=== PATIENT | male | born 1960 | race American Indian/Alaskan Native ===

== ENCOUNTER 2020-11-20 13:11 | Emergency (ER) | payer MEDICARE, MEDICAID ==
[2020-11-20] MEDS ORDERED: IBUPROFEN 600 MG TAB PO ONE (15:32)
--- NOTE | 2020-11-20 15:35 | Event Note ---
ED Screening Note Date of service: 11/20/20 Time: 15:33 ED Screening Note: 59-year-old -Japanese male with a past medical history of bipolar insomnia and anxiety presents to the emergency room for right elbow and left knee pain and swelling after a fall yesterday. This initial assessment/diagnostic orders/clinical plan/treatment(s) is/are subject to change based on patients health status, clinical progression and re- assessment by fellow clinical providers in the ED. Further treatment and workup at subsequent clinical providers discretion. Patient/guardian urged not to elope from the ED as their condition may be serious if not clinically assessed and managed. Initial orders include:
--- NOTE | 2020-11-20 16:14 | XRay Report ---
RIGHT ELBOW 3 VIEWS INDICATION / CLINICAL INFORMATION: fall deny swelling and pain. COMPARISON: None available. FINDINGS: A large joint effusion is present. Metallic density is present superimposed over the lateral aspect o f the distal humerus. No other significant skeletal abnormality Signer Name: Timur Ramos MD FACSamantha Signed: 11/20/2020 4:09 PM Workstation Name: [id number]
--- NOTE | 2020-11-20 16:15 | XRay Report ---
LEFT KNEE 2 VIEWS INDICATION / CLINICAL INFORMATION: fall knee pain ecchymosis. COMPARISON: None available. FINDINGS: A small radiopaque density is seen in the soft tissues medially the distal third of the tibia. No oth er significant abnormality Signer Name: Timur Ramos MD FACSamantha Signed: 11/20/2020 4:10 PM Workstation Name: [id number]
[2020-11-20] MEDS ORDERED: ACETAMINOPHEN 500 MG TAB PO ONE (18:04)
--- NOTE | 2020-11-20 18:04 | Emergency Department Report ---
ED Fall HPI - General Chief Complaint: Fall Stated Complaint: RT ELBOW/LT KNEE PAIN Source: patient Mode of arrival: Ambulatory - History of Present Illness Initial Comments: Patient is a 59-year-old male with no past medical history presents to the ED with complaint of acute onset persistent severe right elbow and left knee pain after he tripped and fell down landing on the right elbow and rolling on his left knee 24 hours ago when trying to catch a bus. Patient states that the pain was initially mild but subsequently got worse especially in the last 12 hours. Patient states that the pain is worse with any active range of motion or ambulation. Patient denies head or neck injuries, nausea, vomiting, syncope, seizures, loss of consciousness, back pain, hip pain, abdominal pain, change in vision or numbness and tingling or weakness of lower and upper extremities bilaterally. MD Complaint: fall, other (Right elbow and left knee pain) -: Sudden, hour(s) (24) Fall From: standing, other (Tripped and fell concrete ground) When Fall Occurred: 24 hours CLAIM TRAINEE Fall Witnessed: yes, by bystander Place Fall Occurred: street Loss of Consciousness: none Prolonged Down Time?: no Symptoms Prior to Fall: none Location: other (Right elbow and left knee) Location - Extremities: Left: Knee (Pain and mild swelling), Right: Elbow (Pain and mild swelling) Severity: severe Severity scale (0 -10): 8 Quality: sharp, aching Context: tripped/slipped (Tripped and fell down on the concrete ground 24 hours ago) Associated Symptoms: denies. denies: headache, neck pain, numbness, weakness, chest paint, shortness of breath, hematuria - Related Data Previous Rx's Medication Instructions Recorded Last Taken Type Ibuprofen [Motrin] 800 mg PO Q8HR PRN #30 tablet 11/20/20 Unknown Rx methOCARBAMOL [Robaxin TAB] 750 mg PO Q8H PRN #21 tablet 11/20/20 Unknown Rx Allergies Allergy/AdvReac Type Severity Reaction Status Date / Time No Known Allergies Allergy Unverified 11/20/20 14:00 ED Review of Systems ROS: Stated complaint: RT ELBOW/LT KNEE PAIN Other details as noted in HPI Constitutional: denies: chills, fever Eyes: denies: eye pain, eye discharge, vision change ENT: denies: ear pain, throat pain Respiratory: denies: cough, shortness of breath, wheezing Cardiovascular: denies: chest pain, palpitations Endocrine: no symptoms reported Gastrointestinal: denies: abdominal pain, nausea, diarrhea Genitourinary: denies: urgency, dysuria Musculoskeletal: joint swelling (Right elbow swelling), arthralgia (Right elbow and left knee pain), myalgia. denies: back pain Skin: denies: rash, lesions Neurological: denies: headache, weakness, paresthesias Psychiatric: denies: anxiety, depression Hematological/Lymphatic: denies: easy bleeding, easy bruising ED Past Medical Hx - Medications Home Medications: Home Medications Medication Instructions Recorded Confirmed Last Taken Type Ibuprofen [Motrin] 800 mg PO Q8HR PRN #30 tablet 11/20/20 Unknown Rx methOCARBAMOL [Robaxin TAB] 750 mg PO Q8H PRN #21 tablet 11/20/20 Unknown Rx ED Physical Exam - General Limitations: No Limitations General appearance: alert, in no apparent distress - Head Head exam: Present: atraumatic, normocephalic, normal inspection - Eye Eye exam: Present: normal appearance, PERRL, EOMI Pupils: Present: normal accommodation - ENT ENT exam: Present: normal exam, normal orophraynx, mucous membranes moist, TM's normal bilaterally, normal external ear exam - Neck Neck exam: Present: normal inspection, full ROM - Respiratory Respiratory exam: Present: normal lung sounds bilaterally. Absent: respiratory distress, wheezes, rhonchi, stridor, chest wall tenderness, accessory muscle use, decreased breath sounds, other - Cardiovascular Cardiovascular Exam: Present: normal rhythm, bradycardia, normal heart sounds. Absent: systolic murmur, diastolic murmur, rubs, gallop - GI/Abdominal GI/Abdominal exam: Present: soft, normal bowel sounds. Absent: tenderness, guarding, rebound, hyperactive bowel sounds, hypoactive bowel sounds, mass, pulsatile mass - Extremities Exam Extremities exam: Present: normal inspection, tenderness (Palpable right elbow and left knee tenderness with mild swelling and limited range of motion of right elbow due to pain), normal capillary refill, joint swelling (Mildly swollen right elbow and left knee joint). Absent: full ROM (Limited range of motion of right elbow due to pain), calf tenderness - Back Exam Back exam: Present: normal inspection, full ROM. Absent: tenderness, CVA tenderness (R), CVA tenderness (L), muscle spasm, paraspinal tenderness, vertebral tenderness - Neurological Exam Neurological exam: Present: alert, oriented X3, CN II-XII intact, normal gait, reflexes normal - Psychiatric Psychiatric exam: Present: normal affect, normal mood - Skin Skin exam: Present: warm, dry, intact, normal color. Absent: rash ED Course Vital Signs 11/20/20 11/20/20 14:00 16:03 Temperature 98.2 F Pulse Rate 53 L Respiratory 16 18 Rate Blood Pressure 154/85 [Right] O2 Sat by Pulse 96 Oximetry ED Medical Decision Making - Radiology Data Radiology results: report reviewed, image reviewed [facility] [address] [place] [address] XRay Report Signed Patient: JASON POP MR#: [id number] : 1960 Acct:[id number] Age/Sex: 59 / M ADM Date: 11/20/20 Loc: ED Attending Dr: Ordering Physician: MEHUL RAMOS Date of Service: 11/20/20 Procedure(s): XR knee 1-2V LT Accession Number(s): [id number] cc: MEHUL RAMOS Fluoro Time In Minutes: LEFT KNEE 2 VIEWS INDICATION / CLINICAL INFORMATION: fall knee pain ecchymosis. COMPARISON: None available. FINDINGS: A small radiopaque density is seen in the soft tissues medially the distal third of the tibia. No other significant abnormality Signer Name: Timur Ramos MD FACR Signed: 11/20/2020 4:10 PM Workstation Name: [id number] Transcribed By: MS Dictated By: Timur Ramos MD Electronically Authenticated By: Timur Ramos MD Signed Date/Time: 11/20/20 161 DD/ 08 TD/TT: [facility] [address] [place] [address] XRay Report Signed Patient: JASON POP MR#: [id number] : 1960 Acct:[id number] Age/Sex: 59 / M ADM Date: 11/20/20 Loc: ED Attending Dr: Ordering Physician: MEHUL RAMOS Date of Service: 11/20/20 Procedure(s): XR elbow 3+V RT Accession Number(s): [id number] cc: MEHUL RAMOS Fluoro Time In Minutes: RIGHT ELBOW 3 VIEWS INDICATION / CLINICAL INFORMATION: fall deny swelling and pain. COMPARISON: None available. FINDINGS: A large joint effusion is present. Metallic density is present superimposed over the lateral aspect of the distal humerus. No other significant skeletal abnormality Signer Name: Timur Ramos MD FACR Signed: 11/20/2020 4:09 PM Workstation Name: [id number] Transcribed By: MS Dictated By: Timur Ramos MD Electronically Authenticated By: Timur Ramos MD Signed Date/Time: 11/20/201608 DD/ 08 TD/TT: Print Cancel - Medical Decision Making This is a 59-year-old male with no past medical history presents to the ED with complaint of acute onset persistent severe right elbow and left knee pain after he tripped and fell down landing on the right elbow and rolling on his left knee 24 hours ago when trying to catch a bus. Patient states that the pain was initially mild but subsequently got worse especially in the last 12 hours. Patient states that the pain is worse with any active range of motion or ambulation. In the ED, patient is alert and oriented x3 and is not in distress but appears to be in significant pain. Patient was treated for pain in the ED. Left knee x-ray shows no acute fractures or subluxations. Right elbow x-ray also showed no acute fractures or subluxations. The right elbow was immobilized in a sling and the left knee splinted with Maikel wrap. On reevaluation, patient's pain is well controlled medications. Patient was discharged home on pain medications and advised to follow-up with his primary care physician in 5 to 7 days for reevaluation or return to the ED immediately if symptoms get worse. - Differential Diagnosis Elbow sprain; Elbow contusion; Knee contusion; knee sprain Critical care attestation.: If time is entered above; I have spent that time in minutes in the direct care of this critically ill patient, excluding procedure time. ED Disposition Clinical Impression: Contusion of right forearm, initial encounter Sprain of left knee/leg Qualifiers: Encounter type: initial encounter Qualified Code(s): S83.92XA - Sprain of unspecified site of left knee, initial encounter Sprain of right elbow Qualifiers: Encounter type: initial encounter Qualified Code(s): S53.401A - Unspecified sprain of right elbow, initial encounter Disposition: TO HOME OR SELFCARE Is pt being admited?: No Does the pt Need Aspirin: No Condition: Stable Instructions: Knee Sprain, Adult, [id number]-[id number], Contusion, [id number], Elbow Sprain Additional Instructions: The x-rays of right elbow and left knee showed no acute fractures or subluxations. Your injuries are likely due to muscle strain and muscle spasm and soft tissue injuries. Therefore take medications with food, drink plenty of fluids and follow-up with your primary care physician in 5 to 7 days for reevaluation. Return to the ED immediately if symptoms get worse. Prescriptions: Ibuprofen [Motrin] 800 mg PO Q8HR PRN #30 tablet PRN Reason: Pain , Severe (7-10) methOCARBAMOL [Robaxin TAB] 750 mg PO Q8H PRN #21 tablet PRN Reason: Muscle Spasm Referrals: [facility] [Outside] - 3-5 Days Forms: Work/School Release Form(ED) Time of Disposition: 18:02 Print Language: GABONESE
[2020-11-20 18:45] VITALS: BP 150/92
== END 2020-11-20 18:46 | disposition home or self-care (01) ==
LOC: ED 13:11
DX: S83.92XA Sprain of unspecified site of left knee, initial encounter (principal); S53.401A Unspecified sprain of right elbow, initial encounter; S50.11XA Contusion of right forearm, initial encounter; Z79.899 Other long term (current) drug therapy; W01.0XXA Fall on same level from slipping, tripping and stumbling without subsequent striking against object, initial encounter; Y93.89 Activity, other specified; Y92.89 Other specified places as the place of occurrence of the external cause; Y99.8 Other external cause status

== ENCOUNTER 2021-09-30 08:20 | Emergency (ER) | payer MEDICARE ==
[2021-09-30] MEDS ORDERED: LIDOCAINE (1%) 10 MG/1 ML VIAL 20 ML MDV INFILTRATI ONE (08:22)
[2021-09-30] MEDS ORDERED: TETANUS,DIPH,PERTUSS(ACELL) VACCINE 0.5 ML SYRINGE IM ONE (08:22)
--- NOTE | 2021-09-30 08:26 | Emergency Department Report ---
ED Fall HPI - General Chief Complaint: Wound/Laceration Stated Complaint: LACERATION Time Seen by Provider: 09/30/21 08:21 - History of Present Illness Initial Comments: Patient presents by ambulance secondary to a fall. He tripped and fell while walking. He struck his face on the ground. Patient sustained a laceration to the lower lip. This happened just prior to arrival. He had no loss of consciousness. He denies neck pain and back pain. Has no chest pain or abdominal pain. He did not injure his arms or shoulders. Patient has no loose dentition. He did not injure his tongue. He only came in because of the lace ration to the lower lip. He is unsure when his tetanus shot was last updated. - Related Data Previous Rx's Medication Instructions Recorded Last Taken Type Ibuprofen [Motrin] 800 mg PO Q8HR PRN #30 tablet 11/20/20 Unknown Rx methOCARBAMOL [Robaxin TAB] 750 mg PO Q8H PRN #21 tablet 11/20/20 Unknown Rx Allergies Allergy/AdvReac Type Severity Reaction Status Date / Time No Known Allergies Allergy Verified 09/30/21 08:34 ED Review of Systems ROS: Stated complaint: LACERATION Other details as noted in HPI Comment: All other systems reviewed and negative Constitutional: denies: fever Eyes: denies: vision change ENT: denies: throat pain Respiratory: denies: cough Cardiovascular: denies: chest pain Endocrine: denies: unexplained weight loss Gastrointestinal: denies: abdominal pain Genitourinary: denies: dysuria Musculoskeletal: denies: back pain Skin: denies: rash Neurological: denies: headache Hematological/Lymphatic: denies: easy bruising ED Past Medical Hx - Past Medical History Additional medical history: Alcohol abuse - Social History Smoking Status: Never Smoker Substance Use Type: None - Medications Home Medications: Home Medications Medication Instructions Recorded Confirmed Last Taken Type Ibuprofen [Motrin] 800 mg PO Q8HR PRN #30 tablet 11/20/20 Unknown Rx methOCARBAMOL [Robaxin TAB] 750 mg PO Q8H PRN #21 tablet 11/20/20 Unknown Rx ED Physical Exam - General Limitations: No Limitations, Other (Pulse ox noted and normal by EMS) General appearance: alert, in no apparent distress - Head Head exam: Present: normocephalic, other (There are multiple lacerations to the lower lip.) - Eye Eye exam: Present: normal appearance, EOMI. Absent: scleral icterus - ENT ENT exam: Present: normal external ear exam, other (Oropharynx is clear.) - Neck Neck exam: Present: normal inspection. Absent: tenderness, meningismus - Respiratory Respiratory exam: Present: normal lung sounds bilaterally. Absent: respiratory distress - Cardiovascular Cardiovascular Exam: Present: regular rate, normal rhythm - GI/Abdominal GI/Abdominal exam: Present: soft. Absent: tenderness - Extremities Exam Extremities exam: Present: normal capillary refill - Back Exam Back exam: Present: full ROM - Neurological Exam Neurological exam: Present: alert, oriented X3, CN II-XII intact, normal gait, reflexes normal. Absent: motor sensory deficit - Psychiatric Psychiatric exam: Present: normal affect, normal mood - Skin Skin exam: Present: warm, dry ED Course Vital Signs 09/30/21 09/30/21 09/30/21 08:34 08:39 09:50 Temperature 98 F Pulse Rate 89 83 Respiratory 16 Rate Blood Pressure 148/97 153/88 [Right] O2 Sat by Pulse 98 98 95 Oximetry - Reevaluation(s) Reevaluation #1: 09/30/21 08:25 EMS was met upon arrival. Tetanus booster and lidocaine were ordered. Reevaluation #2: 09/30/21 08:53 Laceration was repaired. Patient is complaining of a headache. He does not appear to be intoxicated. CT was ordered. Reevaluation #3: 09/30/21 09:26 CT was reviewed. Results are pending. It appears to be normal. I do believe patient will be discharged. - Laceration /Wound Repair Lower Face Wound Location: mouth (Lower lip) Wound Length (cm): 2 Wound's Depth, Shape: irregular, flap Wound Explored: clean Irrigated w/ Saline (ccs): 250 Betadine Prep?: Yes Anesthesia: 1% Lidocaine Volume Anesthetic (ccs): 3 Wound Repaired With: sutures Suture Size/Type: 6:0 (Vicryl) Number of Sutures: 5 Sterile Dressing Applied?: Yes Progress: Including 2 through the [facility] ED Medical Decision Making - Radiology Data Radiology results: report reviewed - Medical Decision Making Patient presents with a lip laceration after fall. This is been repaired. Has no loose dentition. There is no midface instability. I do not believe there is evidence of a facial fracture. I do not believe CT is necessary. Patient had no loss of consciousness. He has a normal neurologic exam. Is not anticoagulated. Again, CT would not be indicated. Patient was given a tetanus booster. Wound repair was completed. Patient was subsequently discharged. As the patient had complained of a headache with fall and intoxication, CT was obtained. I did not appreciate any evidence of acute bleed. There is no subdural or epidural hematomas. Critical Care Time: No Critical care attestation.: If time is entered above; I have spent that time in minutes in the direct care of this critically ill patient, excluding procedure time. ED Disposition Clinical Impression: Abnormal CT of brain Fall Qualifiers: Encounter type: initial encounter Qualified Code(s): W19.XXXA - Unspecified fall, initial encounter Lip laceration Qualifiers: Encounter type: initial encounter Qualified Code(s): S01.511A - Laceration without foreign body of lip, initial encounter Alcohol intoxication Qualifiers: Complication of substance-induced condition: with unspecified complication Qualified Code(s): F10.929 - Alcohol use, unspecified with intoxication, unspecified Disposition: 01 HOME / SELF CARE / HOMELESS Is pt being admited?: No Condition: Stable Instructions: Laceration Care, Adult, Sutured Wound Care Additional Instructions: Keep the lip moist. Apply ice for pain and swelling. Drink plenty water. Return for problems. Follow-up with your regular doctor or the referral physician in 2 days for wound check. If you cannot follow-up, return here. Referrals: LUCA HARPER MD [Primary Care Provider] - 3-5 Days TIARA WALTERS MD [Staff Physician] - 3-5 Days
[2021-09-30 09:50] VITALS: BP 153/88
--- NOTE | 2021-09-30 09:58 | Cat Scan Report ---
. CT head/brain wo con INDICATION / CLINICAL INFORMATION: 60 years Male; trauma, intoxicated. TECHNIQUE: Routine CT head without contrast. All CT scans at this location are performed using CT dos e reduction for ALARA by means of automated exposure control. COMPARISON: None. FINDINGS: BRAIN / INTRACRANIAL CONTENTS: There may be a mild component of edema or myelomalacia in the posterio r body and splenium of the corpus callosum. MRI would be helpful for further evaluation, if clinicall y warranted. Otherwise, no acute hemorrhage, mass effect, midline shift, hydrocephalus, or acute, large territori al infarct. No signs of significant atrophy or chronic infarct. No significant white matter abnormali ty seen. CRANIOCERVICAL JUNCTION: No significant abnormality. ORBITS: No significant abnormality of visualized orbits. SINUSES / MASTOIDS: Mild mucosal thickening in the ethmoids. Frontal process of the maxilla fracture seen on the left with minimal apex medial angulation. No sign ificant soft tissue swelling seen in this region-this finding may been related to a remote injury. Pl ease clinically correlate. ADDITIONAL FINDINGS: Postsurgical change is seen in the mandible on the left. Bilateral temporomandib ular joint disease noted-left greater than right. Asymmetrically, mildly prominent soft tissue and secretions seen in the right posterolateral nasophar ynx, when compared with the left. Direct visual inspection of this region may be of benefit. IMPRESSION: 1. Edema and/or myelomalacia seen in the posterior body and splenium of the corpus callosum. Follow-u p with pre and postcontrast MRI of the brain, as clinically warranted. 2. Otherwise, no focal mass, hemorrhage, hydrocephalus, or ischemia seen. Signer Name: Yossi Henley MD, III Signed: 09/30/2021 9:53 AM Workstation Name: [id number]
[2021-09-30] MEDS ORDERED: ACETAMINOPHEN 500 MG TAB PO ONE (11:44)
== END 2021-09-30 10:17 | disposition home or self-care (01) ==
LOC: ED 08:20
DX: S01.511A Laceration without foreign body of lip, initial encounter (principal); R94.02 Abnormal brain scan; F10.129 Alcohol abuse with intoxication, unspecified; W18.30XA Fall on same level, unspecified, initial encounter; Y93.01 Activity, walking, marching and hiking; Y92.89 Other specified places as the place of occurrence of the external cause; Y99.8 Other external cause status
CPT/HCPCS: 12011; 70450; 90471; 90715; 99284; J3490

== ENCOUNTER 2021-10-04 00:08 | Emergency (ER) | payer MEDICARE ==
[2021-10-04] MEDS ORDERED: AMOXICILLIN 500 MG CAP PO ONE (07:46)
[2021-10-04] MEDS ORDERED: traMADol 50 MG TAB PO ONE (07:46)
--- NOTE | 2021-10-04 07:46 | Emergency Department Report ---
Suture/Staple Removal - HPI Chief Complaint: Laceration/Recheck/Suture Stated Complaint: LIP PAIN Time Seen by Provider: 10/04/21 07:39 Wound Location: LOWER LIP ED Review of Systems ROS: Stated complaint: LIP PAIN Other details as noted in HPI Comment: All other systems reviewed and negative ED Past Medical Hx - Past Medical History Previous Medical History?: Yes Additional medical history: Alcohol abuse - Surgical History Past Surgical History?: No - Family History Family history: no significant - Social History Smoking Status: Never Smoker Substance Use Type: None - Medications Home Medications: Home Medications Medication Instructions Recorded Confirmed Last Taken Type Ibuprofen [Motrin] 800 mg PO Q8HR PRN #30 tablet 11/20/20 Unknown Rx methOCARBAMOL [Robaxin TAB] 750 mg PO Q8H PRN #21 tablet 11/20/20 Unknown Rx Amoxicillin [Trimox CAP] 500 mg PO BID #20 capsule 10/04/21 Unknown Rx Suture Removal Exam - Exam General: Vital signs noted. No distress. Alert and acting appropriately. Wound: Yes Pathologic Erythema, Yes Tenderness, No Drainage, No Pus, No Wound Dehiscence Other Systems: All other systems reviewed and are unremarkable. ED Course Vital Signs 10/04/21 06:28 Temperature 97.8 F Pulse Rate 51 L Respiratory 18 Rate Blood Pressure 148/96 O2 Sat by Pulse 95 Oximetry ED Recheck MDM - Core Measures Measure Exclusions: not indicated - Differential Diagnosis Wound Recheck - Medical Decision Making PT HAD STITCHES PLACED 3 DAYS AGO CO LIP PAIN NO DRAINAGE WOUND CRUSTED OVER NO FEVER LIP SWOLLEN AND RED NO FEVER OR CHILLS TDAP UTD WOUND CARE PROVIDED STARTED AMOX IN ER ULTRAM FOR PAIN STARTED ON AMOX TODAY- WILL RETURN FOR SUTURE REMOVAL AT PREDETERMINED DATE Vital Signs 10/04/21 06:28 Temperature 97.8 F Pulse Rate 51 L Respiratory 18 Rate Blood Pressure 148/96 O2 Sat by Pulse 95 Oximetry Critical care attestation.: If time is entered above; I have spent that time in minutes in the direct care of this critically ill patient, excluding procedure time. ED Disposition Clinical Impression: Wound infection Lip laceration Qualifiers: Encounter type: sequela Qualified Code(s): S01.511S - Laceration without foreign body of lip, sequela Disposition: 01 HOME / SELF CARE / HOMELESS Is pt being admited?: No Does the pt Need Aspirin: No Condition: Stable Instructions: Wound Infection Additional Instructions: amox. antibiotic as given to you today take until gone clean wound with soap and water twice per day return to ER in 7 days (from day of injury) for suture removal or your pcp can take them out Prescriptions: Amoxicillin [Trimox CAP] 500 mg PO BID #20 capsule Referrals: JAMIL ECHEVERRIA MD [Staff Physician] - 3-5 Days Time of Disposition: 07:53
[2021-10-04 09:02] VITALS: BP 140/90
== END 2021-10-04 09:02 | disposition home or self-care (01) ==
LOC: ED 00:08
DX: L08.89 Other specified local infections of the skin and subcutaneous tissue (principal); S01.511D Laceration without foreign body of lip, subsequent encounter; F10.20 Alcohol dependence, uncomplicated; X58.XXXD Exposure to other specified factors, subsequent encounter
CPT/HCPCS: 99282

== ENCOUNTER 2021-10-10 10:07 | Emergency (ER) | payer MEDICARE ==
[2021-10-10 11:28] VITALS: BP 149/94
--- NOTE | 2021-10-10 11:56 | Emergency Department Report ---
Suture/Staple Removal - HPI Chief Complaint: Laceration/Recheck/Suture Stated Complaint: LIP Time Seen by Provider: 10/10/21 11:37 Wound Location: 60-year-old male presents to the ER for removal of sutures placed on 09/30 ED Review of Systems ROS: Stated complaint: LIP Other details as noted in HPI Comment: All other systems reviewed and negative Constitutional: no symptoms reported Respiratory: no symptoms reported Endocrine: no symptoms reported Skin: other (Sutures in place to lower lip) ED Past Medical Hx - Past Medical History Previous Medical History?: No Additional medical history: Alcohol abuse - Surgical History Past Surgical History?: No - Social History Smoking Status: Never Smoker Substance Use Type: None - Medications Home Medications: Home Medications Medication Instructions Recorded Confirmed Last Taken Type Ibuprofen [Motrin] 800 mg PO Q8HR PRN #30 tablet 11/20/20 Unknown Rx methOCARBAMOL [Robaxin TAB] 750 mg PO Q8H PRN #21 tablet 11/20/20 Unknown Rx Amoxicillin [Trimox CAP] 500 mg PO BID #20 capsule 10/04/21 Unknown Rx Suture Removal Exam - Exam General: Vital signs noted. No distress. Alert and acting appropriately. Wound: Yes Tenderness, No Pathologic Erythema, No Drainage, No Pus, No Wound Dehiscence Other Systems: All other systems reviewed and are unremarkable. ED Course Vital Signs 10/10/21 11:24 Temperature 98.3 F Pulse Rate 55 L Respiratory 14 Rate Blood Pressure 149/94 O2 Sat by Pulse 98 Oximetry ED Recheck MDM - Differential Diagnosis Wound Recheck, Suture/Staple Removal - Medical Decision Making Sutures noted to be in place to the lower lip. No swelling or drainage noted area noted to be tender to touch. Upon examination of his previous chart, patient was noted to have Vicryl sutures placed in lip. Patient was advised to keep sutures in place until they dissolve because Vicryl is a dissolvable suture. He stated that he is taking antibiotics as previously ordered. He denies fever or any purulent drainage. Patient verbalized understanding of plan. He was advised to follow-up with his primary care provider if any other problems or here for any complications. Critical Care Time: No Critical care attestation.: If time is entered above; I have spent that time in minutes in the direct care of this critically ill patient, excluding procedure time. ED Disposition Clinical Impression: Encounter for wound re-check Disposition: HOME / SELF CARE / HOMELESS Is pt being admited?: No Does the pt Need Aspirin: No Instructions: Sutured Wound Care, [id number] Additional Instructions: Continue antibiotics as previously ordered. Leave stitches in place until they dissolve. Continue to evaluate stitches daily and if you develop drainage, swelling, redness, or fever please return to ER for wound check. Follow-up with primary care doctor as needed. Time of Disposition: 11:58
== END 2021-10-10 19:10 | disposition home or self-care (01) ==
LOC: ED 10:07
DX: S01.511D Laceration without foreign body of lip, subsequent encounter (principal); Z48.00 Encounter for change or removal of nonsurgical wound dressing; X58.XXXD Exposure to other specified factors, subsequent encounter

== ENCOUNTER 2021-12-04 06:06 | Emergency (ER) | payer MEDICARE ==
[2021-12-04] MEDS ORDERED: HALOPERIDOL LACTATE 5 MG/1 ML INJ IM ONE (06:13)
[2021-12-04] MEDS ORDERED: diphenhydrAMINE 50 MG/ML VIAL IM ONE (06:13)
[2021-12-04] MEDS ORDERED: LORazepam 2 MG/ML VIAL IM ONE (06:13)
[2021-12-04] MEDS ORDERED: LORazepam 2 MG/ML VIAL ONE (06:14)
[2021-12-04] MEDS ORDERED: HALOPERIDOL LACTATE 5 MG/1 ML INJ ONE (06:14)
[2021-12-04] MEDS ORDERED: diphenhydrAMINE 50 MG/ML VIAL ONE (06:14)
[2021-12-04 07:07] LABS: Basophils % (Auto) 0.2 % (0.0-1.8); Eosinophils % (Auto) 0.1 % (0.0-4.3); Hematocrit 41.5 % (35.5-45.6); Hemoglobin 13.2 gm/dl (11.8-15.2); Lymphocytes # (Auto) 0.8 K/mm3 (1.2-5.4); Lymphocytes % (Auto) 10.5 % (13.4-35.0); Mean Corpuscular HGB Conc 32 % (32-34); Mean Corpuscular Volume 94 fl (84-94); Monocytes # (Auto) 0.5 K/mm3 (0.0-0.8); Monocytes % (Auto) 6.1 % (0.0-7.3); Platelet Count 199 K/mm3 (140-440); Red Blood Count 4.43 M/mm3 (3.65-5.03); Red Cell Distribution Width 13.5 % (13.2-15.2)
[2021-12-04 07:28] LABS: BUN/Creatinine Ratio 19; Blood Urea Nitrogen 15 mg/dL (9-20); Calcium 9.1 mg/dL (8.4-10.2); Hemolysis Index 12
[2021-12-04 07:47] LABS: Bilirubin,Urine NEG (Negative); Blood,Urine SM (Negative); Color,Urine Colorless (Yellow); Protein,Urine <15 mg/dL mg/dL (Negative); Urobilinogen,Urine < 2.0 mg/dL (<2.0); WBC,Urine < 1.0 /HPF (0.0-6.0)
[2021-12-04 07:49] LABS: Amphetamine Screen,Urine Negative; Benzodiazepines Screen,Urine Negative; Cannabinoid Screen,Urine Negative; Methadone Screen,Urine Negative; Opiate Screen,Urine Negative
[2021-12-04 08:45] LABS: Cocaine Screen,Urine Positive
--- NOTE | 2021-12-04 11:24 | Event Note ---
Date: 12/04/21 Attempted to see the patient, he is sedated at this time.
[2021-12-04] MEDS ORDERED: SODIUM CHLORIDE 0.9% 1000 ML 1,000 ML IV ONE (12:20)
[2021-12-04] MEDS ORDERED: DEXTROSE 50% IN WATER (25GM) 50 ML SYRINGE IV ONE (15:49)
[2021-12-05] MEDS ORDERED: THIAMINE 100 MG TAB PO ONE (06:55)
[2021-12-05] MEDS ORDERED: POTASSIUM CHLORIDE ER 20 MEQ TAB PO ONE (06:55)
[2021-12-05] MEDS ORDERED: MULTIVITAMINS ,THERAPEUTIC TAB PO ONE (06:55)
--- NOTE | 2021-12-05 06:55 | Emergency Department Report ---
HPI - General Chief Complaint: Alcohol Time Seen by Provider: 12/04/21 06:13 - HPI HPI: Room 20 The patient is a 60-year-old male who originally presented to the ED 24 hours ago after being found on the side of the road. Patient was seen by the ED phys butch yesterday and placed on a 1013 secondary to "alcohol and agitation." I was asked by the nurse to place an ED note as one had not been placed yesterday. The patient is easily awakened and states he does not know how he ended up in the emergency department believes he drank "1 too many." The patient does admit to feeling depressed for "a long time." Patient denies suicidal homicidal ideation but admits to auditory hallucinations with voices telling him "I am no good." ED Past Medical Hx - Past Medical History Additional medical history: Alcohol abuse - Family History Family history: no significant - Social History Smoking Status: Unknown if ever smoked Substance Use Type: Alcohol - Medications Home Medications: Home Medications Medication Instructions Recorded Confirmed Last Taken Type Ibuprofen [Motrin] 800 mg PO Q8HR PRN #30 tablet 11/20/20 Unknown Rx methOCARBAMOL [Robaxin TAB] 750 mg PO Q8H PRN #21 tablet 11/20/20 Unknown Rx Amoxicillin [Trimox CAP] 500 mg PO BID #20 capsule 10/04/21 Unknown Rx ED Review of Systems ROS: Stated complaint: MH EVAL Other details as noted in HPI Constitutional: no symptoms reported Eyes: denies: eye pain ENT: denies: throat pain Respiratory: no symptoms reported Cardiovascular: denies: chest pain Endocrine: no symptoms reported Gastrointestinal: denies: abdominal pain Genitourinary: denies: dysuria Musculoskeletal: denies: back pain Psychiatric: depression, auditory hallucinations. denies: visual hallucinations, homicidal thoughts, suicidal thoughts Physical Exam - Physical Exam Vital Signs: Vital Signs 12/04/21 12/04/21 12/04/21 07:46 08:04 08:30 Temperature 97.5 F L Pulse Rate 74 71 70 Respiratory 16 17 16 Rate Blood Pressure 125/76 143/88 Blood Pressure [Left] O2 Sat by Pulse 98 95 97 Oximetry 12/04/21 12/04/21 12/04/21 09:00 09:30 10:00 Temperature Pulse Rate 68 60 50 L Respiratory 15 14 12 Rate Blood Pressure 114/74 112/70 132/85 Blood Pressure [Left] O2 Sat by Pulse 95 96 100 Oximetry 12/04/21 12/04/21 12/04/21 10:30 11:00 11:30 Temperature Pulse Rate 54 L 54 L 55 L Respiratory 15 16 15 Rate Blood Pressure 130/77 132/76 140/105 Blood Pressure [Left] O2 Sat by Pulse 99 97 97 Oximetry 12/04/21 12/04/21 12/04/21 12:00 12:10 12:30 Temperature Pulse Rate 56 L 56 L 50 L Respiratory 15 16 14 Rate Blood Pressure 113/70 128/84 Blood Pressure 113/70 [Left] O2 Sat by Pulse 95 95 98 Oximetry 12/04/21 12/04/21 12/04/21 13:00 13:30 14:00 Temperature Pulse Rate 55 L 57 L 54 L Respiratory 23 15 13 Rate Blood Pressure 139/83 126/78 131/91 Blood Pressure [Left] O2 Sat by Pulse 93 90 98 Oximetry 12/04/21 12/04/21 12/04/21 14:30 15:00 15:30 Temperature Pulse Rate 51 L 57 L 52 L Respiratory 10 L 16 7 L Rate Blood Pressure 140/91 127/79 144/81 Blood Pressure [Left] O2 Sat by Pulse 96 95 96 Oximetry 12/04/21 12/04/21 12/04/21 16:00 16:30 17:00 Temperature Pulse Rate 52 L 54 L 50 L Respiratory 17 16 14 Rate Blood Pressure 145/84 143/85 159/87 Blood Pressure [Left] O2 Sat by Pulse 96 97 98 Oximetry 12/04/21 12/04/21 12/04/21 17:30 18:00 18:18 Temperature Pulse Rate 57 L 55 L 55 L Respiratory 16 15 16 Rate Blood Pressure 143/86 126/78 Blood Pressure 126/78 [Left] O2 Sat by Pulse 95 96 96 Oximetry 12/04/21 12/04/21 12/04/21 19:00 19:30 20:00 Temperature 97.9 F Pulse Rate 55 L 54 L 77 Respiratory 17 15 17 Rate Blood Pressure 129/93 133/84 Blood Pressure 137/91 [Left] O2 Sat by Pulse 98 98 95 Oximetry 12/04/21 12/04/21 12/04/21 21:00 21:12 22:00 Temperature Pulse Rate 59 L 61 59 L Respiratory 14 21 19 Rate Blood Pressure 136/85 136/85 150/92 Blood Pressure [Left] O2 Sat by Pulse 96 95 95 Oximetry 12/04/21 12/05/21 12/05/21 23:00 00:00 01:00 Temperature Pulse Rate 65 66 70 Respiratory 18 22 21 Rate Blood Pressure 136/79 128/74 120/70 Blood Pressure [Left] O2 Sat by Pulse 95 94 98 Oximetry 12/05/21 12/05/21 12/05/21 02:00 03:00 04:00 Temperature Pulse Rate 67 56 L 54 L Respiratory 21 19 18 Rate Blood Pressure 143/81 145/93 142/89 Blood Pressure [Left] O2 Sat by Pulse 98 94 94 Oximetry Physical Exam: GENERAL: The patient is well-developed well-nourished male sleeping on stretcher not appearing to be in acute distress. [] HEENT: Normocephalic. Atraumatic. Extraocular motions are intact. Patient has moist mucous membranes. NECK: Supple. Trachea midline CHEST/LUNGS: Clear to auscultation. There is no respiratory distress noted. HEART/CARDIOVASCULAR: Regular. There is no tachycardia. There is no gallop rub or murmur. ABDOMEN: Abdomen is soft, nontender. Patient has normal bowel sounds. There is no abdominal distention. SKIN: There is no rash. There is no edema. There is no diaphoresis. NEURO: The patient is awake, alert, and oriented. The patient is cooperative. The patient has no focal neurologic deficits. The patient has normal speech. GCS 15 MUSCULOSKELETAL: There is no evidence of acute injury. ED Course Vital Signs 12/04/21 12/04/21 12/04/21 07:46 08:04 08:30 Temperature 97.5 F L Pulse Rate 74 71 70 Respiratory 16 17 16 Rate Blood Pressure 125/76 143/88 Blood Pressure [Left] O2 Sat by Pulse 98 95 97 Oximetry 12/04/21 12/04/21 12/04/21 09:00 09:30 10:00 Temperature Pulse Rate 68 60 50 L Respiratory 15 14 12 Rate Blood Pressure 114/74 112/70 132/85 Blood Pressure [Left] O2 Sat by Pulse 95 96 100 Oximetry 12/04/21 12/04/21 12/04/21 10:30 11:00 11:30 Temperature Pulse Rate 54 L 54 L 55 L Respiratory 15 16 15 Rate Blood Pressure 130/77 132/76 140/105 Blood Pressure [Left] O2 Sat by Pulse 99 97 97 Oximetry 12/04/21 12/04/21 12/04/21 12:00 12:10 12:30 Temperature Pulse Rate 56 L 56 L 50 L Respiratory 15 16 14 Rate Blood Pressure 113/70 128/84 Blood Pressure 113/70 [Left] O2 Sat by Pulse 95 95 98 Oximetry 12/04/21 12/04/21 12/04/21 13:00 13:30 14:00 Temperature Pulse Rate 55 L 57 L 54 L Respiratory 23 15 13 Rate Blood Pressure 139/83 126/78 131/91 Blood Pressure [Left] O2 Sat by Pulse 93 90 98 Oximetry 12/04/21 12/04/21 12/04/21 14:30 15:00 15:30 Temperature Pulse Rate 51 L 57 L 52 L Respiratory 10 L 16 7 L Rate Blood Pressure 140/91 127/79 144/81 Blood Pressure [Left] O2 Sat by Pulse 96 95 96 Oximetry 12/04/21 12/04/21 12/04/21 16:00 16:30 17:00 Temperature Pulse Rate 52 L 54 L 50 L Respiratory 17 16 14 Rate Blood Pressure 145/84 143/85 159/87 Blood Pressure [Left] O2 Sat by Pulse 96 97 98 Oximetry 12/04/21 12/04/21 12/04/21 17:30 18:00 18:18 Temperature Pulse Rate 57 L 55 L 55 L Respiratory 16 15 16 Rate Blood Pressure 143/86 126/78 Blood Pressure 126/78 [Left] O2 Sat by Pulse 95 96 96 Oximetry 12/04/21 12/04/21 12/04/21 19:00 19:30 20:00 Temperature 97.9 F Pulse Rate 55 L 54 L 77 Respiratory 17 15 17 Rate Blood Pressure 129/93 133/84 Blood Pressure 137/91 [Left] O2 Sat by Pulse 98 98 95 Oximetry 12/04/21 12/04/21 12/04/21 21:00 21:12 22:00 Temperature Pulse Rate 59 L 61 59 L Respiratory 14 21 19 Rate Blood Pressure 136/85 136/85 150/92 Blood Pressure [Left] O2 Sat by Pulse 96 95 95 Oximetry 12/04/21 12/05/21 12/05/21 23:00 00:00 01:00 Temperature Pulse Rate 65 66 70 Respiratory 18 22 21 Rate Blood Pressure 136/79 128/74 120/70 Blood Pressure [Left] O2 Sat by Pulse 95 94 98 Oximetry 12/05/21 12/05/21 12/05/21 02:00 03:00 04:00 Temperature Pulse Rate 67 56 L 54 L Respiratory 21 19 18 Rate Blood Pressure 143/81 145/93 142/89 Blood Pressure [Left] O2 Sat by Pulse 98 94 94 Oximetry ED Medical Decision Making - Lab Data Result diagrams: 12/04/21 06:56 12/04/21 06:56 Laboratory Tests 12/04/21 12/04/21 12/04/21 06:56 06:56 06:56 WBC 7.6 RBC 4.43 Hgb 13.2 Hct 41.5 MCV 94 MCH 30 MCHC 32 RDW 13.5 Plt Count 199 Lymph % (Auto) 10.5 L Mobile % (Auto) 6.1 Eos % (Auto) 0.1 Baso % (Auto) 0.2 Lymph # (Auto) 0.8 L Mobile # (Auto) 0.5 Eos # (Auto) 0.0 Baso # (Auto) 0.0 Seg Neutrophils % 83.1 H Seg Neutrophils # 6.3 Sodium 142 Potassium 3.1 L Chloride 102.4 Carbon Dioxide 23 Anion Gap 20 BUN 15 Creatinine 0.8 Estimated GFR > 60 BUN/Creatinine Ratio 19 Glucose 89 POC Glucose Calcium 9.1 Urine Color Urine Turbidity Urine pH Ur Specific [place] Urine Protein Urine Glucose (UA) Urine Ketones Urine Blood Urine Nitrite Urine Bilirubin Urine Urobilinogen Ur Leukocyte Esterase Urine WBC (Auto) Urine RBC (Auto) U Epithel Cells (Auto) Salicylates < 0.3 L Urine Opiates Screen Urine Methadone Screen Acetaminophen Ur Barbiturates Screen Ur Phencyclidine Scrn Ur Amphetamines Screen U Benzodiazepines Scrn Urine Cocaine Screen U Marijuana (THC) Screen Drugs of Abuse Note Plasma/Serum Alcohol 12/04/21 12/04/21 12/04/21 06:56 06:56 07:29 WBC RBC Hgb Hct MCV MCH MCHC RDW Plt Count Lymph % (Auto) Mobile % (Auto) Eos % (Auto) Baso % (Auto) Lymph # (Auto) Mobile # (Auto) Eos # (Auto) Baso # (Auto) Seg Neutrophils % Seg Neutrophils # Sodium Potassium Chloride Carbon Dioxide Anion Gap BUN Creatinine Estimated GFR BUN/Creatinine Ratio Glucose POC Glucose Calcium Urine Color Colorless Urine Turbidity Clear Urine pH 7.0 Ur Specific [place] 1.002 L Urine Protein <15 mg/dl Urine Glucose (UA) Neg Urine Ketones Neg Urine Blood Sm Urine Nitrite Neg Urine Bilirubin Neg Urine Urobilinogen < 2.0 Ur Leukocyte Esterase Neg Urine WBC (Auto) < 1.0 Urine RBC (Auto) 1.0 U Epithel Cells (Auto) < 1.0 Salicylates Urine Opiates Screen Urine Methadone Screen Acetaminophen 5.0 L Ur Barbiturates Screen Ur Phencyclidine Scrn Ur Amphetamines Screen U Benzodiazepines Scrn Urine Cocaine Screen U Marijuana (THC) Screen Drugs of Abuse Note Plasma/Serum Alcohol 0.26 H 12/04/21 12/04/21 12/04/21 07:29 12:41 15:48 WBC RBC Hgb Hct MCV MCH MCHC RDW Plt Count Lymph % (Auto) Mobile % (Auto) Eos % (Auto) Baso % (Auto) Lymph # (Auto) Mobile # (Auto) Eos # (Auto) Baso # (Auto) Seg Neutrophils % Seg Neutrophils # Sodium Potassium Chloride Carbon Dioxide Anion Gap BUN Creatinine Estimated GFR BUN/Creatinine Ratio Glucose POC Glucose 66 L Calcium Urine Color Urine Turbidity Urine pH Ur Specific [place] Urine Protein Urine Glucose (UA) Urine Ketones Urine Blood Urine Nitrite Urine Bilirubin Urine Urobilinogen Ur Leukocyte Esterase Urine WBC (Auto) Urine RBC (Auto) U Epithel Cells (Auto) Salicylates Urine Opiates Screen Negative Urine Methadone Screen Negative Acetaminophen Ur Barbiturates Screen Negative Ur Phencyclidine Scrn Negative Ur Amphetamines Screen Negative U Benzodiazepines Scrn Negative Urine Cocaine Screen Positive U Marijuana (THC) Screen Negative Drugs of Abuse Note Disclamer Plasma/Serum Alcohol 0.18 H 12/04/21 16:42 WBC RBC Hgb Hct MCV MCH MCHC RDW Plt Count Lymph % (Auto) Mobile % (Auto) Eos % (Auto) Baso % (Auto) Lymph # (Auto) Mobile # (Auto) Eos # (Auto) Baso # (Auto) Seg Neutrophils % Seg Neutrophils # Sodium Potassium Chloride Carbon Dioxide Anion Gap BUN Creatinine Estimated GFR BUN/Creatinine Ratio Glucose POC Glucose 134 H Calcium Urine Color Urine Turbidity Urine pH Ur Specific [place] Urine Protein Urine Glucose (UA) Urine Ketones Urine Blood Urine Nitrite Urine Bilirubin Urine Urobilinogen Ur Leukocyte Esterase Urine WBC (Auto) Urine RBC (Auto) U Epithel Cells (Auto) Salicylates Urine Opiates Screen Urine Methadone Screen Acetaminophen Ur Barbiturates Screen Ur Phencyclidine Scrn Ur Amphetamines Screen U Benzodiazepines Scrn Urine Cocaine Screen U Marijuana (THC) Screen Drugs of Abuse Note Plasma/Serum Alcohol - Differential Diagnosis Alcohol intoxication, depression Critical care attestation.: If time is entered above; I have spent that time in minutes in the direct care of this critically ill patient, excluding procedure time. ED Disposition Clinical Impression: Alcohol intoxication Condition: Stable Referrals: PRIMARY CARE, [Primary Care Provider] - 3-5 Days
[2021-12-05] MEDS ORDERED: FOLIC ACID 1 MG TAB PO ONE (06:56)
[2021-12-05 08:45] VITALS: BP 145/82
--- NOTE | 2021-12-05 11:40 | Consultation ---
History of Present Illness - Reason for Consult Consult date: 12/05/21 Reason for consult: mental health evaluation - History of Present Psychiatric Illness The patient is a 60 year old male with history of bipolar and alcohol use disorder who presents to the ED and was placed on a 1013 secondary to "alcohol and agitation." In my encounter with the patient, he is calm, alert and oriented x3. The patient states he stated using alcohol in his 20s and [facility]. When asked why he drinks, he states " so much be going inside my head, I don't have no life, I stay homeless." The patient reports consuming about 2 shots of Vodka daily. He denies any current withdrawal symptoms. he denies suicidal/homicidal ideation and denies hallucinations. PAST PSYCHIATRIC HISTORY Diagnoses: Bipolar Suicide attempts or Self-harm behavior:Denies Prior psychiatric hospitalizations: Yes Substance Abuse history:Alcohol Previous psychiatric medications tried:unable to recall Outpatient treatment: Unknown SOCIAL HISTORY Marital Status: Single Living Arrangements:Homeless Employment Status: Unemployed Access to guns/weapons: Denies Education: 11th grade History of abuse: Denies Legal History: unknown ROS Constitutional: Negative for weight loss EMT: Respiratory: Negative for cough or hemoptysis All other systems reviewed and are negative MENTAL STATUS EXAMINATION General Appearance: Dressed appropriately. Behavior: Calm and cooperative. Good eye contact. Mood:good Affect: congruent to stated mood Speech: Normal Thought Process: Goal directed Thought Content:Denies Suicidal Ideation:Denies Homicidal Ideation: Denies Hallucinations: Denies Delusions: None elicited Insight and Judgment: Limited Memory/Cognition: Limited Assessment and Plan (1)Alcohol use disorder Treatment Plan DC 1013 No medications prescribed Risks, benefits and alternatives of medications discussed with the patient, questions answered and consent obtained from patient. PSYCHOTHERAPY: Supportive psychotherapy provided MEDICAL: Per primary team DELIRIUM PRECAUTIONS: Please re-orient patient frequently, keep lights on during the day, and minimize benzodiazepines and opiates as these medications could worsen patient's confusion. DIRECTOR CLINICAL OPERATIONS: Per primary DISPOSITION: Do not recommend acute inpatient psychiatric hospitalization at this time. Shuttle Bus Driver will provide patient psychiatric outpatient resources. Will sign off. Thank you for the consult. Please contact with any questions an d/or concerns. Case discussed with Dr. Beltran who agrees with current disposition Medications and Allergies Medications and Allergies Allergies Allergy/AdvReac Type Severity Reaction Status Date / Time No Known Allergies Allergy Verified 09/30/21 08:34 Home Medications Medication Instructions Recorded Confirmed Last Taken Type Ibuprofen [Motrin] 800 mg PO Q8HR PRN #30 tablet 11/20/20 Unknown Rx methOCARBAMOL [Robaxin TAB] 750 mg PO Q8H PRN #21 tablet 11/20/20 Unknown Rx Amoxicillin [Trimox CAP] 500 mg PO BID #20 capsule 10/04/21 Unknown Rx Mental Status Exam - Vital signs Last Vital Signs Temp 97.9 F 12/04/21 19:30 Pulse 54 L 12/05/21 06:00 Resp 18 12/05/21 06:00 BP 145/82 12/05/21 06:00 Pulse Ox 97 12/05/21 08:49 Results Result Diagrams: 12/04/21 06:56 12/04/21 06:56 Abnormal lab results 12/04/21 12/04/21 12/04/21 Range/Units 12:41 15:48 16:42 POC Glucose 66 L 134 H (70-105) mg/dL Plasma/Serum Alcohol 0.18 H (0-0.07) % All other labs normal.
== END 2021-12-05 14:09 | disposition home or self-care (01) ==
LOC: EEVIPCON 06:06 → ED 06:06
DX: F10.129 Alcohol abuse with intoxication, unspecified (principal); Z20.822 Contact with and (suspected) exposure to COVID-19
CPT/HCPCS: 36415; 80048; 80307; 81001; 82962; 85025; 96361; 96372; 96374; 99285; J1200; J1630; J2060; J3490; J7030; U0003; 80320; Q0162; G0480